=== PATIENT | female | born 1965 | race Caucasian/White ===

== ENCOUNTER 2017-02-18 20:52 | Emergency (ER) | payer OTHER ==
--- NOTE | 2017-02-18 21:00 | PDOC ---
Rapid Medical Evaluation Chief Complaint: Back Pain Time Seen by Provider: 02/18/17 20:59 Medical Evaluation: Allergies Allergy/AdvReac Type Severity Reaction Status Date / Time No Known Allergies Allergy Verified 01/02/15 02:54 02/18/17 20:59 I have performed a brief in-person evaluation of this patient. The patient presents with a chief complain of:Left flank pain w/o n/v,f/c Pertinent physical exam findings: Left flank pain on percussion B/P left arm 187/106 did not take HTN meds today Amlodipine 10mg 1 tab daily I have ordered the following:ua,upreg The patient will proceed to the ED for further evaluation. Discharge Disposition - Referrals Referrals: Jay Jay Jensen MD, MD [Primary Care Provider] - - Patient Instructions - Post Discharge Activity
[2017-02-18 21:01] VITALS: BP 187/106; PULSE 96; TEMP 98.1; BMI 41.5
[2017-02-18 21:22] LABS: URINE APPEARANCE CLEAR; URINE BILIRUBIN NEGATIVE (NEGATIVE); URINE BLOOD 1+ (NEGATIVE); URINE COLOR STRAW; URINE GLUCOSE (UA) NEGATIVE (NEGATIVE); URINE KETONE NEGATIVE (NEGATIVE); URINE LEUK ESTERASE NEGATIVE (NEGATIVE); URINE NITRITE NEGATIVE (NEGATIVE); URINE PROTEIN NEGATIVE (NEGATIVE); URINE UROBILINOGEN NEGATIVE mg/dL (0.2-1.0)
[2017-02-18] MEDS ORDERED: KETOROLAC TROMETHAMINE 60 MG/2 ML VIAL IM ONE (22:25)
[2017-02-18 22:35] LABS: BASOPHIL 0.6 % (0-2.0); MCH 27.7 pg (25.7-33.7); MCHC 33.8 g/dl (32.0-36.0); MEAN CELL VOLUME 82.2 fl (80-96); MEAN PLT VOLUME 7.6 fl (7.5-11.1); PLATELET COUNT 284 K/MM3 (134-434); RDW 15.8 % (11.6-15.6)
[2017-02-18] MEDS ORDERED: KETOROLAC TROMETHAMINE 60 MG/2 ML VIAL ONE (22:36)
[2017-02-18 22:41] LABS: URINE MUCUS RARE; URINE RBC 1 /hpf (0-3)
--- NOTE | 2017-02-18 22:46 | PDOC ---
History of Present Illness - General Chief Complaint: Back Pain Stated Complaint: BACK PAIN Time Seen by Provider: 02/18/17 20:59 History Source: Patient Exam Limitations: No Limitations - History of Present Illness Initial Comments: 02/19/17 01:01 51-year-old female presents to the emergency department complaining of left sided low back pains since this afternoon. Patient denies any injury/fall or urinary symptoms. Patient denies headache, dizziness, lightheadedness, fever/ chills, nausea/vomiting/diarrhea, chest pain, shortness of breath, abdominal pains, flank pains, urinary frequency/urgency/hesitancy, hematuria. Patient states she has intermittent right upper quadrant discomfort over the past month but not the past 48 hours. Patient states the pain is exacerbated after she eats fatty food. Patient has no abdominal pains today. Occurred: reports: this afternoon Pain Location: reports: back Past History - Past Medical History Allergies/Adverse Reactions: Allergies Allergy/AdvReac Type Severity Reaction Status Date / Time No Known Allergies Allergy Verified 02/18/17 21:01 Home Medications: Ambulatory Orders Amlodipine Besylate/Benazepril [Lotrel 5-20 mg Capsule] 1 each PO DAILY Azithromycin [Zithromax 250mg Tablets -] 250 mg PO UTDICT #6 tab 01/02/15 Guaifenesin AC [Robitussin AC] 5 - 10 ml PO Q4H #100 ml 01/02/15 Nebulizer 1 each MC PRN #1 kit 01/02/15 Prednisone [Deltasone -] 40 mg PO UTDICT #8 tablet 01/02/15 Sodium Chloride Inhalation [Normal Saline *For Inhalation*] 3 ml IH PRN #100 vial.neb 01/02/15 COPD: No HTN: Yes - Surgical History Abdominal Surgery: Yes - Immunization History Immunization Up to Date: Yes - Suicide/Smoking/Psychosocial Hx Smoking Status: No Smoking History: Never smoked Number of Cigarettes Smoked Daily: 0 Hx Alcohol Use: Yes Drug/Substance Use Hx: No Review of Systems - Review of Systems Able to Perform ROS?: Yes Comments:: 02/19/17 01:00 CONSTITUTIONAL: Absent: fever, chills, diaphoresis, generalized weakness, malaise, loss of appetite HEENT: Absent: rhinorrhea, nasal congestion, throat pain, throat swelling, difficulty swallowing, mouth swelling, ear pain, eye pain, visual Changes CARDIOVASCULAR: Absent: chest pain, loss of consciousness, palpitations, irregular heart rate, peripheral edema RESPIRATORY: Absent: cough, shortness of breath, dyspnea with exertion, orthopnea, wheezing, stridor, hemoptysis GASTROINTESTINAL: left sided LBP Absent: abdominal pain, abdominal distension, nausea, vomiting, diarrhea, constipation, melena, hematochezia GENITOURINARY: Absent: dysuria, frequency, urgency, hesitancy, hematuria, flank pain, genital pain MUSCULOSKELETAL: Absent: myalgia, arthralgia, joint swelling SKIN: Absent: rash, itching, pallor Is the patient limited Marshallese proficient: No *Physical Exam - Vital Signs Last Vital Signs Temp Pulse Resp BP Pulse Ox 98.1 F 96 H 18 187/106 98 02/18/17 20:57 02/18/17 20:57 02/18/17 20:57 02/18/17 20:57 02/18/17 20:57 - Physical Exam Comments: 02/19/17 01:00 GENERAL: Well developed, well nourished. Awake and alert. No acute distress. HEENT: Normocephalic, atraumatic. PERRLA, EOMI. No conjunctival pallor. Sclera are non- icteric. Moist mucous membranes. Oropharynx is clear. NECK: Supple. Full ROM. No JVD. Carotid pulses 2+ and symmetric, without bruits. No thyromegaly. No lymphadenopathy. CARDIOVASCULAR: Regular rate and rhythm. No murmurs, rubs, or gallops. Distal pulses are 2+ and symmetric. PULMONARY: No evidence of respiratory distress. Lungs clear to auscultation bilaterally. No wheezing, rales or rhonchi. ABDOMINAL: Soft. Non-tender. Non-distended. No rebound or guarding. No organomegaly. Normoactive bowel sounds. MUSCULOSKELETAL Normal range of motion at all joints. No bony deformities or tenderness. No CVA tenderness. EXTREMITIES: No cyanosis. No clubbing. No edema. No calf tenderness. SKIN: Warm and dry. Normal capillary refill. No rashes. No jaundice. ED Treatment Course - LABORATORY CBC & Chemistry Diagram: 02/18/17 22:23 02/18/17 22:23 - ADDITIONAL ORDERS Additional order review: Laboratory Results 02/18/17 21:06 Urine Color Straw Urine Appearance Clear Urine pH 7.0 Ur Specific Tell 1.010 Urine Protein Negative Urine Glucose (UA) Negative Urine Ketones Negative Urine Blood 1+ H Urine Nitrite Negative Urine Bilirubin Negative Urine Urobilinogen Negative Urine WBC (Auto) None Urine RBC (Auto) 1 Urine Mucus Rare Urine HCG, Qual Negative 02/18/17 22:23 RBC 4.90 MCV 82.2 MCHC 33.8 RDW 15.8 H D MPV 7.6 Neutrophils % 66.0 Lymphocytes % 23.7 D Monocytes % 7.7 Eosinophils % 2.0 Basophils % 0.6 - RADIOLOGY Radiology Studies Ordered: Category Date Time Status SPIRAL- RENAL-STONE CT [CT] Stat CT Scan 02/18/17 22:33 Ordered Radiograph Interpretation: 02/19/17 01:03 CT abd/pelvis w/o contrast: Choelithiasis - Medications Given in the ED: ED Medications Discontinued Medications Generic Name Dose Route Start Last Admin Trade Name Freq PRN Reason Stop Dose Admin Ketorolac Tromethamine 60 mg 02/18/17 22:25 02/18/17 22:43 Toradol Injection - IM 02/18/17 22:26 60 mg ONCE ONE Administration *DC/Admit/Observation/Transfer Diagnosis at time of Disposition: Cholelithiases Qualifiers: Cholelithiasis location: other site Biliary obstruction: without biliary obstruction Qualified Code(s): K80.80 - Other cholelithiasis without obstruction Acute left-sided low back pain Qualifiers: Sciatica presence: without sciatica Qualified Code(s): M54.5 - Low back pain - Discharge Dispostion Disposition: HOME Condition at time of disposition: Stable Admit: No - Referrals Referrals: Jay Jay Jensen MD, MD [Primary Care Provider] - Terrance Darling MD [Staff Physician] - - Patient Instructions Printed Discharge Instructions: DI for Gallstones, DI for Low Back Pain Additional Instructions: Rest Tylenol or motrin as needed for pain Follow up with Orthopedics You also have gallstones. Please follow up with Dr. Filipe Yates Return to the ER for severe/persistent/worsening symptoms - Post Discharge Activity
[2017-02-18 23:07] LABS: ALBUMIN 4.2 g/dl (3.4-5.0); ANION GAP 10 (8-16); BILIRUBIN,TOTAL 0.4 mg/dL (0.2-1.0); CALCIUM 9.2 mg/dL (8.5-10.1); CO2 30 mmol/L (21-32); GLUCOSE,RANDOM 103 mg/dL (74-106); SGOT/AST 7 U/L (15-37); SGPT/ALT 22 U/L (12-78); TOT PROT 7.3 g/dl (6.4-8.2)
[2017-02-18 23:08] LABS: ALK PHOS 79 U/L (45-117)
[2017-02-19 12:39] LABS: URINE LEUK ESTERASE Negative (NEGATIVE)
== END 2017-02-19 01:21 | disposition home or self-care (01) ==
LOC: JER 20:52
PROC: 3E0233Z Introduction of Anti-inflammatory into Muscle, Percutaneous Approach (ICD-10-PCS; principal; 2017-02-18)
DX: K80.80 Other cholelithiasis without obstruction (principal); M54.5 Low back pain
CPT/HCPCS: 36415; 74176; 80053; 81003; 81015; 84703; 85025; 99281-25

== ENCOUNTER 2017-02-20 11:24 | Emergency (ER) | payer OTHER ==
[2017-02-20 11:34] VITALS: BP 155/101; PULSE 82; TEMP 98.3; BMI 41.5
[2017-02-20] MEDS ORDERED: CYCLOBENZAPRINE HCL 10 MG TABLET (FP) PO ONE (11:53)
[2017-02-20] MEDS ORDERED: CYCLOBENZAPRINE HCL 10 MG TABLET (FP) ONE (11:56)
--- NOTE | 2017-02-20 12:12 | PDOC ---
History of Present Illness - General Chief Complaint: Back Pain Stated Complaint: REVISIT, BACK PAIN Time Seen by Provider: 02/20/17 11:45 History Source: Patient Exam Limitations: No Limitations - History of Present Illness Initial Comments: 02/20/17 12:33 51 year old female continually complaining of low back pain. Patient states was seen here 2 days ago was told to take Motrin or Tylenol for the pain. Patient also states incidentally was found to have gallstones on CAT scan but states has no right upper quadrant pain and the pain is central and to the left lower back. Patient denies any urinary complaints, weakness of the lower extremity, radiation of pain to her abdomen or legs. 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 but denies any strenuous activity change in weight, rash, or swelling to the area Occurred: reports: other Severity: reports: moderate Pain Location: reports: back Method of Injury: Yes: unknown Associated Symptoms (Fall): trouble walking (mild) Past History - Travel Traveled outside of the country in the last 30 days: No - Past Medical History Allergies/Adverse Reactions: Allergies Allergy/AdvReac Type Severity Reaction Status Date / Time No Known Allergies Allergy Verified 02/20/17 11:30 Home Medications: Ambulatory Orders Cyclobenzaprine HCl [Flexeril 10 mg] 5 mg PO BID PRN #12 tablet 02/20/17 Ibuprofen [Motrin -] 600 mg PO QID 02/20/17 Oxycodone HCl/Acetaminophen [Percocet 5-325 mg Tablet] 1 - 2 tab PO Q6H PRN #12 tab MDD 4 02/20/17 COPD: No HTN: Yes - Surgical History Abdominal Surgery: Yes Cholecystectomy: Yes - Immunization History Immunization Up to Date: Yes - Suicide/Smoking/Psychosocial Hx Smoking Status: No Smoking History: Never smoked Number of Cigarettes Smoked Daily: 0 Hx Alcohol Use: Yes Drug/Substance Use Hx: No Patient Lives Alone: No Lives with/in: spouse/SO Review of Systems - Review of Systems Able to Perform ROS?: No Constitutional: No: Symptoms Reported HEENTM: No: Symptoms Reported Respiratory: No: Symptoms reported Cardiac (ROS): No: Symptoms Reported ABD/GI: No: Symptoms Reported : No: Symptoms Reported Musculoskeletal: Yes: Back Pain Integumentary: No: Symptoms Reported Neurological: No: Symptoms reported *Physical Exam - Vital Signs Last Vital Signs Temp Pulse Resp BP Pulse Ox 98.3 F 82 18 155/101 98 02/20/17 11:31 02/20/17 11:31 02/20/17 11:31 02/20/17 11:31 02/20/17 11:31 - Physical Exam General Appearance: Yes: Nourished, Appropriately Dressed. No: Apparent Distress Neck: positive: Supple. negative: Tender Gastrointestinal/Abdominal: positive: Soft. negative: Tenderness Musculoskeletal: positive: Vertebral Tenderness (l3-5). negative: CVA Tenderness Extremity: positive: Normal Capillary Refill Integumentary: positive: Normal Color, Warm, Moist Neurologic: positive: Normal Mood/Affect, Motor Strength 07/16 ED Treatment Course - RADIOLOGY Radiology Studies Ordered: Category Date Time Status SPINE-LUMBAR ONLY [RAD] Stat Radiology 02/20/17 11:53 Ordered - Medications Given in the ED: ED Medications Discontinued Medications Generic Name Dose Route Start Last Admin Trade Name Freq PRN Reason Stop Dose Admin Cyclobenzaprine HCl 5 mg 02/20/17 11:53 02/20/17 11:57 Flexeril - PO 02/20/17 11:54 5 mg ONCE ONE Administration Oxycodone/Acetaminophen 1 combo 02/20/17 11:53 02/20/17 11:57 Percocet 5/325 - PO 02/20/17 11:54 1 combo ONCE ONE Administration Medical Decision Making - Medical Decision Making 02/20/17 12:34 Patient complaints of continual low back pain. Patient examined at L3-L5 tenderness along with left paraspinous tenderness. Patienthas exam. Patient ordered for lumbar spine x-ray along with Percocet and Flexeril. Patient CT of abdomen and pelvis 2 days ago did not have discussion of the spine including the lumbar region. 02/20/17 13:04 X-ray negative for acute pathology. Patient states than benefit receiving the medication. Will discharge patient home with the same and give referral to an orthopedist. *DC/Admit/Observation/Transfer Diagnosis at time of Disposition: Acute left-sided low back pain Qualifiers: Sciatica presence: without sciatica Qualified Code(s): M54.5 - Low back pain - Discharge Dispostion Disposition: HOME Condition at time of disposition: Improved - Prescriptions Prescriptions: Cyclobenzaprine HCl [Flexeril 10 mg] 5 mg PO BID PRN #12 tablet PRN Reason: Back Pain Oxycodone HCl/Acetaminophen [Percocet 5-325 mg Tablet] 1 - 2 tab PO Q6H PRN #12 tab MDD 4 PRN Reason: Pain - Referrals Referrals: Arsen Perez MD [Staff Physician] - - Patient Instructions Printed Discharge Instructions: DI for Low Back Pain Additional Instructions: Please take medication as prescribed and avoid movements that triggerdiscomfort. Please to plenty of fluids and follow-up with referred orthopedist. - Post Discharge Activity
== END 2017-02-20 13:09 | disposition home or self-care (01) ==
LOC: JER 11:24 → JERFT 11:24
DX: M54.5 Low back pain (principal); I10 Essential (primary) hypertension
CPT/HCPCS: 72100-TC; 99281-25

== ENCOUNTER 2021-02-22 12:01 | Emergency (ER) | payer OTHER ==
[2021-02-22 12:07] VITALS: BP 168/108; PULSE 81; TEMP 98; BMI 41.1
[2021-02-22] MEDS ORDERED: METHOCARBAMOL 500 MG TABLET PO ONE (13:17)
[2021-02-22] MEDS ORDERED: KETOROLAC TROMETHAMINE 30 MG/1 ML VIAL IM ONE (13:17)
[2021-02-22] MEDS ORDERED: KETOROLAC TROMETHAMINE 30 MG/1 ML VIAL ONE (13:20)
[2021-02-22] MEDS ORDERED: METHOCARBAMOL 500 MG TABLET ONE (13:20)
[2021-02-22 14:24] LABS: PH,URINE 7.5 (5.0-8.0); URINE APPEARANCE CLEAR; URINE BILIRUBIN NEGATIVE (NEGATIVE); URINE COLOR YELLOW; URINE GLUCOSE (UA) NEGATIVE (NEGATIVE); URINE KETONE NEGATIVE (NEGATIVE); URINE LEUK ESTERASE NEGATIVE (NEGATIVE); URINE NITRITE NEGATIVE (NEGATIVE); URINE PROTEIN NEGATIVE (NEGATIVE); URINE UROBILINOGEN 0.2 mg/dL (0.2-1.0)
== END 2021-02-22 15:20 | disposition home or self-care (01) ==
LOC: JERFT 12:01
PROC: 3E023GC Introduction of Other Therapeutic Substance into Muscle, Percutaneous Approach (ICD-10-PCS; principal; 2021-02-22)
DX: M54.42 Lumbago with sciatica, left side (principal)
CPT/HCPCS: 81003; 87086; 87186; 99284-25

== ENCOUNTER 2023-04-05 11:35 | Emergency (ER) | payer OTHER ==
[2023-04-05 11:43] VITALS: RESP 18; TEMP 98.4; BMI 40.6
[2023-04-05] MEDS ORDERED: KETOROLAC TROMETHAMINE 30 MG/1 ML VIAL IM ONE (12:27)
[2023-04-05] MEDS ORDERED: ACETAMINOPHEN 500 MG TABLET (FP) PO ONE (12:27)
[2023-04-05] MEDS ORDERED: ACETAMINOPHEN 500 MG TABLET (FP) ONE (12:35)
[2023-04-05] MEDS ORDERED: KETOROLAC TROMETHAMINE 30 MG/1 ML VIAL ONE (12:35)
[2023-04-05 13:35] VITALS: BP 136/79; PULSE 68
== END 2023-04-05 14:35 | disposition home or self-care (01) ==
LOC: JERFT 11:35
PROC: 3E0233Z Introduction of Anti-inflammatory into Muscle, Percutaneous Approach (ICD-10-PCS; principal; 2023-04-05)
DX: G56.02 Carpal tunnel syndrome, left upper limb (principal); M25.532 Pain in left wrist; R20.0 Anesthesia of skin
CPT/HCPCS: 99284-25